=== PATIENT | female | born 1975 | race Hispanic/Latino ===

== ENCOUNTER 2023-02-28 21:45 | Emergency (ER) | payer OTHER ==
[~2023-02-28] VITALS: Ht 154.9 cm; Wt 97.0 kg
[2023-02-28 21:59] VITALS: BP 124/58
[2023-02-28 22:16] VITALS: BP 124/71
[2023-02-28 22:31] VITALS: BP 121/75
[2023-02-28 22:46] VITALS: BP 116/66
[2023-02-28] MEDS ORDERED: AMOXICILLIN500 MG PO (22:54)
[2023-02-28 23:03] VITALS: BP 116/66
== END 2023-02-28 23:21 | disposition home or self-care (01) | DRG 605 ==
LOC: ED 21:45
PROC: 0HQFXZZ Repair Right Hand Skin, External Approach (ICD-10-PCS; principal; 2023-02-28)
DX: S61.011A Laceration without foreign body of right thumb without damage to nail, initial encounter (principal); W26.8XXA Contact with other sharp object(s), not elsewhere classified, initial encounter